=== PATIENT | female | born 1995 | race Caucasian/White ===

== ENCOUNTER 2017-09-12 10:52 | Emergency (ER) | payer OTHER ==
[~2017-09-12] VITALS: Ht 160 cm; Wt 67.0 kg
[~2017-09-12 10:52] MED LIST: BCPILLS PO; IBUP-103 PO
[2017-09-12 11:16] VITALS: TEMP 37.1; Ht 160 cm; Wt 67.0 kg
[2017-09-12] MEDS ORDERED: IBUPROFEN 600 MG TAB PO STA (11:34)
--- NOTE | 2017-09-12 11:40 | EMERGENCY ROOM VISIT NOTE ---
ED Visit Note First contact with patient: 11:28 CHIEF COMPLAINT: Finger injury HISTORY OF PRESENT ILLNESS: This 22-year-old female patient presents to the emergency department 2 days after injuring the left thumb while playing football. The patient states she believes she jammed the thumb after catching a football incorrectly. She states she has had increasing left thumb pain and decreased movement at the MCP joint since the incident occurred. She has been using ice, but denies any pain medication. The patient rates the pain as throbbing and 6/10. The patient has limited range of motion of the finger. No numbness or tingling. No lacerations. No other injuries. The patient has not had previous fracture to this finger. The patient has taken nothing for the pain, despite stating it was severe and awoke her from sleep in the middle of the night. REVIEW OF SYSTEMS: A 6 system review of systems was completed with positives and pertinent negatives in the HPI. ALLERGIES: Oxycodone MEDICATIONS: None PMH: None SOCIAL HISTORY: Patient lives locally as a [employer] student. She admits to drinking alcohol socially. The patient denies drug, tobacco use. PHYSICAL EXAM: Vital Signs: Reviewed Nurse's notes, vital signs stable. GENERAL : This is a 22-year-old white female, in no acute distress, but appears to be in pain, well-developed, well-nourished. MUSCULOSKELETAL: There is no deformity of the left first finger. The patient has limited flexion and full extension of the left first finger MCP joint and strength to resistance is 5/5. The MCP joint is maximally tender, with tenderness radiating into the first metacarpal bone. There is no ligamentous instability. There is no laceration. Capillary refill less than 2 seconds. No tenderness of the remaining fingers or hand. Full range of motion of the wrist. NEURO: Alert and oriented to person, place, and time. Normal sensation to light and sharp touch. RADIOLOGY: X-Ray Left Hand: L HAND MIN 3 VIEWS ROUTINE HISTORY: 22 years-old Female left thumb pain at MCP joint/1st metacarpal acute left hand first digit pain status post injury COMPARISON: Left hand radiographs 01/05/2015 TECHNIQUE: 3 views of the left hand FINDINGS: There is mild soft tissue swelling of the first digit. No acute fracture or dislocation, specifically the first metacarpal and first proximal phalanx appear intact. No opaque foreign body identified. No significant degenerative changes. IMPRESSION: Mild soft tissue swelling of the first digit without acute fracture or dislocation identified. The above report was generated using voice recognition software. It may contain grammatical, syntax or spelling errors. Electronically signed by: Wyatt Marks M.D. 09/12/2017 11:56 AM Dictated Date/Time: 09/12/2017 11:53 AM EMERGENCY DEPARTMENT COURSE: I examined the patient. An x-ray of the left hand was reviewed by myself and radiologist and showed no acute fracture or dislocation. The finger was immobiziled by a thumb spica splint at her request, under my direction and the position was satisfactory. Neurovascular status rechecked and intact. The patient was discharged home in good condition. I attest that I have personally reviewed the patient's current medication list. Patient was found to have normal blood pressure on screening and does not require follow-up. 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) Allergies Coded Allergies: Oxycodone (Verified Adverse Reaction, Intermediate, SEVERE NAUSEA, ) Vital Signs Date Time Temp Pulse Resp B/P (MAP) Pulse Ox O2 Delivery O2 Flow Rate FiO2 09/12/17 12:20 81 16 126/78 98 09/12/17 11:16 37.1 86 20 128/73 99 Room Air Medications Administered Medications (Trade) Dose Ordered Sig/Amy Route Start Time Stop Time Status Last Admin Dose Admin Ibuprofen (Motrin Tab) 600 mg NOW STAT PO 09/12/17 11:34 09/12/17 11:36 DC 09/12/17 11:56 600 MG Departure Information Impression Primary Impression: Contusion of thumb, left Dispostion Home / Self-Care Referrals No Doctor, Assigned (PCP) [facility] Patient Instructions ED Contusion Finger, My [facility] Additional Instructions You were seen in the emergency department today for a thumb contusion. X-ray did rule out acute fracture or dislocation. Ibuprofen(Motrin, Advil) may be used for fever or pain. Use 600mg every six hours as needed. Take with food. Avoid using more than 2400mg in a 24 hour period. Do not use 2400mg per day for more than three consecutive days without physician direction. Prolonged inappropriate use can lead to stomach upset or ulcers. (AND/OR) Acetaminophen(Tylenol) may be used for fever or pain. Use 1000mg every six hours as needed. Avoid using more than 3000mg in a 24 hour period. Use ice to help with inflammation. As discussed, I recommend movement as soon as you're able to tolerate it. Use the thumb spica splint for comfort as needed. Please follow up with [facility] in 2-3 days for recheck. Problem Qualifiers Primary Impression: Contusion of thumb, left Encounter type: initial encounter Damage to nail status: without damage Qualified Codes: S60.012A - Contusion of left thumb without damage to nail, initial encounter
[2017-09-12] MEDS ORDERED: IUD'IUD (11:53)
--- NOTE | 2017-09-12 11:57 | DIAGNOSTIC IMAGING REPORT ---
L HAND MIN 3 VIEWS ROUTINE HISTORY: 22 years-old Female left thumb pain at MCP joint/1st metacarpal acute left hand first digit pain status post injury COMPARISON: Left hand radiographs 01/05/2015 TECHNIQUE: 3 views of the left hand FINDINGS: There is mild soft tissue swelling of the first digit. No acute fracture or dislocation, specifically the first metacarpal and first proximal phalanx appear intact. No opaque foreign body identified. No significant degenerative changes. IMPRESSION: Mild soft tissue swelling of the first digit without acute fracture or dislocation identified. The above report was generated using voice recognition software. It may contain grammatical, syntax or spelling errors. Electronically signed by: Wyatt Marks M.D. 09/12/2017 11:56 AM Dictated Date/Time: 09/12/2017 11:53 AM
[2017-09-12 12:20] VITALS: BP 126/78; PULSE 81; O2SAT 98
== END 2017-09-12 12:22 | disposition home or self-care (01) ==
LOC: C.EDB 10:54 → C.EDD 12:22
DX: S60.012A Contusion of left thumb without damage to nail, initial encounter (principal); X58.XXXA Exposure to other specified factors, initial encounter; Y93.61 Activity, american tackle football; Z88.5 Allergy status to narcotic agent